=== PATIENT | male | born 1990 | race African-American/Black ===

== ENCOUNTER 2018-11-18 15:21 | Emergency (ER) | payer SELFPAY ==
[~2018-11-18] VITALS: Ht 190.5 cm; Wt 72.6 kg
[~2018-11-18 15:21] MED LIST: NAPR-682 PO; ORPH100T PO
[2018-11-18 15:40] VITALS: BP 138/76
[2018-11-18] MEDS ORDERED: BACITRACIN TOPICAL OINT 14GM TUBE. TP STA (15:46)
[2018-11-18] MEDS ORDERED: DIPHTH,PERTUSS(ACELL),TET TOX 0.5 ML DISP.SYRIN. VAX IM ONE (16:00)
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
== END 2018-11-18 16:49 | disposition home or self-care (01) ==
LOC: ER 15:21
DX: T23.212A Burn of second degree of left thumb (nail), initial encounter (principal); T24.112A Burn of first degree of left thigh, initial encounter; T24.122A Burn of first degree of left knee, initial encounter; T23.162A Burn of first degree of back of left hand, initial encounter; X12.XXXA Contact with other hot fluids, initial encounter; Y93.G3 Activity, cooking and baking; Y92.89 Other specified places as the place of occurrence of the external cause; Y99.8 Other external cause status
CPT/HCPCS: 16000; 16020; 90471; 90715; 99284

== ENCOUNTER 2018-11-24 17:50 | Emergency (ER) | payer SELFPAY ==
[~2018-11-24] VITALS: Ht 190.5 cm; Wt 68.0 kg
[2018-11-24 17:56] VITALS: BP 115/66
[2018-11-24] MEDS ORDERED: KETOROLAC 30 MG/ML VIAL. IM ONE (18:15)
[2018-11-24] MEDS ORDERED: SILV20CR14 TP (18:23)
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
== END 2018-11-24 18:59 | disposition home or self-care (01) ==
LOC: ER 17:50
DX: T21.26XD Burn of second degree of male genital region, subsequent encounter (principal); T24.202D Burn of second degree of unspecified site of left lower limb, except ankle and foot, subsequent encounter; X11.8XXD Contact with other hot tap-water, subsequent encounter
CPT/HCPCS: 96372; 99283; J1885

== ENCOUNTER 2019-01-11 22:53 | Emergency (ER) | payer OTHER ==
[~2019-01-11] VITALS: Ht 188 cm; Wt 74.8 kg
[~2019-01-11 22:53] MED LIST changes: +SILV20CR14 TP
[2019-01-11 23:00] VITALS: BP 142/76
[2019-01-11] MEDS ORDERED: LIDOCAINE WITH 8.4% SOD BICARB 3 ML DISP.SYRIN. INJ ONE (23:15)
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
== END 2019-01-12 00:05 | disposition home or self-care (01) ==
LOC: ER 22:53
DX: S01.511A Laceration without foreign body of lip, initial encounter (principal); F10.20 Alcohol dependence, uncomplicated; Y90.9 Presence of alcohol in blood, level not specified; V19.9XXA Pedal cyclist (driver) (passenger) injured in unspecified traffic accident, initial encounter; Y93.89 Activity, other specified; Y92.410 Unspecified street and highway as the place of occurrence of the external cause; Y99.8 Other external cause status
CPT/HCPCS: 12013; 99283

== ENCOUNTER 2019-01-17 18:37 | Emergency (ER) | payer OTHER ==
[~2019-01-17] VITALS: Ht 188 cm; Wt 74.8 kg
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
[2019-01-17 22:00] VITALS: BP 127/83
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
== END 2019-01-17 22:24 | disposition home or self-care (01) ==
LOC: ER 18:37
DX: S00.03XD Contusion of scalp, subsequent encounter (principal); R51 Headache; F10.20 Alcohol dependence, uncomplicated; Y90.9 Presence of alcohol in blood, level not specified; Y08.89XD Assault by other specified means, subsequent encounter
CPT/HCPCS: 70450; 70486; 99284-25

== ENCOUNTER 2019-06-13 13:43 | Emergency (ER) | payer SELFPAY ==
[~2019-06-13] VITALS: Ht 190.5 cm; Wt 69.5 kg
[2019-06-13 14:30] VITALS: BP 123/58
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
== END 2019-06-13 15:13 | disposition home or self-care (01) ==
LOC: ER 13:43
DX: S01.112A Laceration without foreign body of left eyelid and periocular area, initial encounter (principal); F12.90 Cannabis use, unspecified, uncomplicated; F10.10 Alcohol abuse, uncomplicated; W19.XXXA Unspecified fall, initial encounter; Y93.89 Activity, other specified; Y92.89 Other specified places as the place of occurrence of the external cause; Y99.8 Other external cause status
CPT/HCPCS: 12011; 99283

== ENCOUNTER 2019-09-06 13:56 | Emergency (ER) | payer SELFPAY ==
[~2019-09-06] VITALS: Ht 190.5 cm; Wt 72.2 kg
--- NOTE | 2019-09-06 14:24 | EKG ---
[facility] [address] [place] [address] Test Date: 2019-09-06 Test Time: 14:06:28 Pat Name: BARBARA GARZA Department: Room: Gender: Sociology Faculty Member: : 1990 Requested By: PATRICIA ORTEGA Order Number: [id number] Reading MD: Danyel Pierce Measurements Intervals [place] Rate: 61 P: 60 PA: 204 QRS: 54 QRSD: 96 T: 56 QT: 364 QTc: 371 Interpretive Statements SINUS RHYTHM T ABNORMALITY IN HIGH LATERAL LEADS NON SPECIFIC ST-T ABNORMALITY (ELEVATION) Electronically Signed On 09-08-2019 10:04:01 CDT by Danyel Pierce
[2019-09-06 15:06] VITALS: BP 104/62
[2019-09-06 15:28] LABS: BASO % 1 % (0-3); EOS # 0.2 x10^3/uL (0.0-0.7); EOS % 3 % (0-3); HEMATOCRIT 40.3 % (39.0-53.0); HEMOGLOBIN 13.3 g/dL (13.0-17.5); LYMPH # 1.3 x10^3/uL (1.0-4.8); LYMPH % 24 % (24-48); MEAN CORPUSCULAR HEMOGLOBIN 29 pg (25-35); MEAN CORPUSCULAR HGB CONC 33 g/dL (31-37); MEAN CORPUSCULAR VOLUME 86 fL (79-100); MONO # 0.4 x10^3/uL (0.0-1.1); MONO % 7 % (0-9); NEUT # 3.4 x10^3/uL (1.8-7.7); NEUT % 64 % (31-73); PLATELET COUNT 182 x10^3/uL (140-400); RED BLOOD COUNT 4.66 x10^6/uL (4.30-5.70); RED CELL DISTRIBUTION WIDTH 13.6 % (11.5-14.5); WHITE BLOOD COUNT 5.3 x10^3/uL (4.0-11.0)
--- NOTE | 2019-09-06 15:29 | PHYS DOC ---
Past Medical History Past Medical History: No Pertinent History Past Surgical History: No Surgical History Smoking Status: Current Every Day Smoker Alcohol Use: Heavy Additional Information: HX REPORTS HEAVY BUT PT REPORTS THAT HE DOES NOT DRINK Drug Use: Marijuana General Adult EDM: Chief Complaint: SYNCOPE Problems: (1) Syncope and collapse HPI: HPI: Patient is a 29 year old male who presents with complaining of syncopal episodes. 6 weeks ago he hit his head on a wall and required stitches. Since that time he has had 3 blackout episodes. He states they happen suddenly. The last one happened 2 days ago while he was at work. He was talking to somebody and suddenly fell. He states he does not feel anything before them and feels very tired afterwards. He has been having intermittent headaches. He denies any vomiting. He does not currently have any symptoms. He is here because he like to go back to work. He denies chest pain, shortness of breath, dizziness, weakness, numbness. Review of Systems: Review of Systems: General: Denies fever, chills, sweats, fatigue Eyes: Denies drainage, blurred vision HENT: Denies rhinorrhea, sore throat Respiratory: Denies cough, shortness of breath, wheezing Cardiac: Denies edema, palpitations, chest pain GI: Denies abdominal pain, N/V MSK: Denies back pain, neck pain Skin: Denies rash, jaundice Neuro: Denies headache, dizziness reports syncope Psychiatric: Denies SI/HI Heart Score: Risk Factors: Risk Factors: DM, Current or recent (<one month) smoker, HTN, HLP, family history of CAD, obesity. Risk Scores: Score 0 - 3: 2.5% MACE over next 6 weeks - Discharge Home Score 4 - 6: 20.3% MACE over next 6 weeks - Admit for Clinical Observation Score 7 - 10: 72.7% MACE over next 6 weeks - Early Invasive Strategies Allergies: Allergies: Allergies Coded Allergies Type Severity Reaction Last Updated Verified No Known Drug Allergies 12/22/15 No Physical Exam: PE: Constitutional: Well developed, well nourished, no acute distress, non-toxic appearance. [] HENT: Normocephalic, atraumatic, bilateral external ears normal, oropharynx moist, no oral exudates, nose normal. [] Eyes: PERRLA, EOMI, conjunctiva normal, no discharge. [] Neck: Normal range of motion, no tenderness, supple, no stridor. [] Cardiovascular:Heart rate regular rhythm, no murmur [] Lungs & Thorax: Bilateral breath sounds clear to auscultation [] Abdomen: Bowel sounds normal, soft, no tenderness, no masses, no pulsatile masses. [] Skin: Warm, dry, no erythema, no rash. [] Back: No tenderness, no CVA tenderness. [] Extremities: No tenderness, no cyanosis, no clubbing, ROM intact, no edema. [] Neurologic: Alert and oriented X 3, normal motor function, normal sensory function, no focal deficits noted. [] Psychologic: Affect normal, judgement normal, mood normal. [] Current Patient Data: Vital Signs: Vital Signs Date Time Temp Pulse Resp B/P (MAP) Pulse Ox O2 Delivery O2 Flow Rate FiO2 09/06/19 14:09 98.6 61 16 120/55 (76) 97 Room Air 98.6 EKG: EKG: Normal sinus rhythm, normal QT, no QRS widening, early re-polarization Radiology/Procedures: Radiology/Procedures: [] Course & Med Decision Making: Course & Med Decision Making Pertinent Labs and Imaging studies reviewed. (See chart for details) Patient is a 29-year-old previously healthy male who presents to the emergency room after having repetitive syncopal episodes. Patient's lack of symptoms makes it less likely to be cardiac in nature. EKG i does not show any signs of arrhythmia at this time. CBC, BMP, troponin, CT head were ordered. Patient would like to be cleared for work. I have discussed with him that he will need to see a sidewalk inspector as it is possible he is having intermittent arrhythmias. 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 Angélica Disclaimer: Angélica Disclaimer: This electronic medical record was generated, in whole or in part, using a voice recognition dictation system. Departure Departure Referrals: NO PCP (PCP) PATRICIA ORTEGA MD Sep 06, 2019 15:29
[2019-09-06 15:36] LABS: CALCIUM 9.2 mg/dL (8.5-10.1); CREATININE 0.9 mg/dL (0.7-1.3); GFR 122.5; POTASSIUM 4.2 mmol/L (3.5-5.1)
[2019-09-06 15:42] LABS: ALBUMIN 4.2 g/dL (3.4-5.0); ALBUMIN/GLOBULIN RATIO 1.2 (1.0-1.7); TOTAL BILIRUBIN 0.7 mg/dL (0.2-1.0); TOTAL PROTEIN 7.6 g/dL (6.4-8.2)
--- NOTE | 2019-09-06 15:51 | RAD ---
CT HEAD WO CONTRAST Date: 09/06/2019 3:23 PM Clinical Indication: Head injury one month ago, intermittent syncope since Comparison: CT head dated 01/17/2019. Technique: 5 mm axial tomographic images were obtained of the head without contrast. These were viewed on brain and bone windows. CT HEAD FINDINGS: The brain parenchyma is normal in attenuation. Thin extra-axial densities are seen along the bilateral temporoparietal regions (images 10-15). No other evidence of intra- or extra-axial mass or fluid collection. No acute hemorrhage. The ventricles are normal in size, shape, and morphology. The laguerre-white matter junction is normal. The basilar cisterns are patent. The visualized paranasal sinuses are normal. The visualized portions of the orbits and globes are normal. The mastoid air cells are clear. No aggressive osseous lesion or fracture. Impression: 1. No large territory infarct. No large intracranial hemorrhage. 2. Thin extra-axial densities are seen along the bilateral temporoparietal regions. These appear to have been present on 2019 exam as well, although are more conspicuous on today's exam. Given the bilateral nature, location, and likely presence on prior, findings are favored to represent beam hardening artifact. The findings were reported to PATRICIA ORTEGA at 09/06/2019 3:47 PM. FOR INTERNAL CODING PURPOSES RESULT CODE: (C) PQRS Compliance Statement: One or more of the following individualized dose reduction techniques were utilized for this examination: 1. Automated exposure control 2. Adjustment of the mA and/or kV according to patient size 3. Use of iterative reconstruction technique Electronically signed by: Harley Holley MD (09/06/2019 3:48 PM) [place] [id number]
== END 2019-09-06 16:19 | disposition home or self-care (01) ==
LOC: ER 13:56
DX: R55 Syncope and collapse (principal); R51 Headache; F17.200 Nicotine dependence, unspecified, uncomplicated; F12.90 Cannabis use, unspecified, uncomplicated; F10.10 Alcohol abuse, uncomplicated
CPT/HCPCS: 36415; 70450; 80053; 84484; 85025; 93005; 99285

== ENCOUNTER 2020-04-08 16:46 | Emergency (ER) | payer BC ==
[~2020-04-08] VITALS: Ht 190.5 cm; Wt 65.1 kg
[2020-04-08] MEDS ORDERED: HYDROcodone/APAP 5/325MG 1 TAB TABLET PO ONE (18:15)
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
[2020-04-08] MEDS ORDERED: HYDR-3164 PO (18:41)
[2020-04-08 19:31] VITALS: BP 110/77
== END 2020-04-08 19:45 | disposition home or self-care (01) ==
LOC: ER 16:46
DX: S62.396A Other fracture of fifth metacarpal bone, right hand, initial encounter for closed fracture (principal); M25.531 Pain in right wrist; M79.641 Pain in right hand; R60.0 Localized edema; F17.200 Nicotine dependence, unspecified, uncomplicated; F12.90 Cannabis use, unspecified, uncomplicated; F10.10 Alcohol abuse, uncomplicated; Y29.XXXA Contact with blunt object, undetermined intent, initial encounter; Y93.89 Activity, other specified; Y92.89 Other specified places as the place of occurrence of the external cause; Y99.8 Other external cause status
CPT/HCPCS: 29125; 73110; 73130; 99284